=== PATIENT | male | born 1980 | race Caucasian/White ===

== ENCOUNTER 2022-06-27 07:00 | Emergency (ER) | payer MEDICAID, SELFPAY ==
[2022-06-27 07:08] VITALS: BP 121/73; PULSE 80; RESP 20; TEMP 36.1; O2SAT 98; BMI 23.0
[2022-06-27] MEDS: Morphine Sulfate 4 MG/ML CARTRIDGE IVPUSH (07:19)
[2022-06-27] MEDS: Ketorolac Tromethamine 15 MG/ML VIAL IVPUSH (07:25)
[2022-06-27] MEDS: Lidocaine HCl 2% PF/Epi 1:200 20 ML VIAL INFILTRATI (07:25)
[2022-06-27 07:40] VITALS: BP 117/77; PULSE 85; RESP 18; O2SAT 100
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
[2022-06-27] MEDS: HYDROmorphone HCl 2 MG/ML VIAL IVPUSH (08:26)
[2022-06-27 09:32] VITALS: BP 119/77; PULSE 61; RESP 16; O2SAT 98
--- NOTE | 2022-06-27 10:47 | PC.NURSE ---
pt is currently asleep, respirations even and unlabored
--- NOTE | 2022-06-27 11:08 | MHC.RECOVRN ---
Attempted to meet with pt x 2 to discuss substance use. Pt unable to stay awake during conversation. T/w available if needed. RN aware.
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
[2022-06-27] MEDS: Diphth,Pertus(ACell),Tet Adult 0.5 ML SYRINGE IM (11:31)
[2022-06-27] MEDS: Naloxone HCl Nasal TAKE HOME 4 MG SPRAY NOSTRILALT (11:33)
[2022-06-27] MEDS: cephALEXin 500 MG CAPSULE PO (11:33)
== END 2022-06-27 11:42 | disposition home or self-care (01) ==
PROVIDERS: Emergency Provider Emergency Medicine Emergency Medical Services
DX: S41.111A Laceration without foreign body of right upper arm, initial encounter (principal); S50.811A Abrasion of right forearm, initial encounter; F11.10 Opioid abuse, uncomplicated; F17.200 Nicotine dependence, unspecified, uncomplicated; W01.119A Fall on same level from slipping, tripping and stumbling with subsequent striking against unspecified sharp object, initial encounter; Y93.9 Activity, unspecified; Y92.007 Garden or yard of unspecified non-institutional (private) residence as the place of occurrence of the external cause; Y99.9 Unspecified external cause status; Z79.899 Other long term (current) drug therapy; Z71.6 Tobacco abuse counseling
CPT/HCPCS: 13121; 13122; 90471; 90715; 96374; 96375; 99284; J1170; J1885; J2270

== ENCOUNTER 2022-07-12 10:45 | Emergency (ER) | payer MEDICAID, SELFPAY ==
[2022-07-12 11:08] VITALS: BP 120/70; PULSE 83; RESP 16; TEMP 36.9; O2SAT 96; BMI 21.9
--- NOTE | 2022-07-12 13:02 | ED_ITS ---
HPI - General Adult General Chief complaint: General Medical Stated complaint: Bassem removed Time Seen by Provider: 07/12/22 12:49 Source: patient Mode of arrival: ambulatory History of Present Illness HPI narrative: 42-year-old male with a past medical history of substance abuse presenting to ED for staple removal s/p injury on 06/27/2022. Patient was seen and treated in our ED after incident had complicated laceration repair with 32 bassem placed. Denies fever, chills, drainage from area, swelling, increasing pain Related Data Previous Rx's Medication Instructions Recorded cephalexin 500 mg capsule 500 mg PO QID 7 days #28 caps 06/27/22 Allergies Allergy/AdvReac Type Severity Reaction Status Date / Time No Known Allergies Allergy Verified 07/12/22 11:08 Review of Systems Review of Systems: Constitutional: No Fever, No Chills ENT/Mouth: No Ear Pain, No Nasal Congestion, No sore throat, No Rhinorrhea, No Swallowing Difficulty Cardiovascular: No Chest Pain, No SOB Respiratory: No Cough, No Sputum, No Wheezing Gastrointestinal: No Nausea, No Vomiting, No Diarrhea, No Constipation, No Abdominal pain Genitourinary: No Dysuria, No Urinary Frequency, No Hematuria, No Flank Pain Musculoskeletal: No joint pain, No Myalgias, No Joint Swelling Skin: +wounds No rash Neuro: No Weakness, No Numbness, No Paresthesias Yes all other systems are reviewed and are negative Constitutional: Constitutional: Reports as per [facility] Past Medical History Attestation statement: The following information was validated with the patient. Medical History (Updated 07/12/22 @ 13:05 by JULIÁN Smith) No known health problems Social History Social History Patient Tobacco Use Status: Current everyday Tobacco user Substance Use Type: Heroin Advance Directives: No Advance Directives Information Provided: No Physical Exam ED Vital Signs: Vital Signs - 24 hr 07/12/22 11:08 Temperature 98.4 F Pulse Rate 83 Respiratory Rate 16 Blood Pressure 120/70 Pulse Oximetry 96 Oxygen Delivery Method Room Air BMI result Body Mass Index 21.9 Const General: cooperative, healthy appearing and no acute distress Orientation/consciousness: patient oriented x3 Limitations: no limitations HENMT Head: Yes normal to inspection and Yes atraumatic Ears: hearing grossly normal bilaterally General nose exam: Normal external nose present Face and sinus: Yes normal facial exam Eyes General: appearance normal, both eyes and all related structures EOM: EOMs intact bilaterally Neck Neck: Yes normal visual inspection and Yes no meningeal signs Resp Effort & Inspection: normal respiratory effort and no respiratory distress Cardio Rate: regular rate Heart sounds: S1 normal heart sound present and S2 normal heart sound present Peripheral pulses: radial pulses present and ulnar radial pulses present Skin Other: Two appropriatelyhealing lacerations with bassem intact to right lateral forearm and medial bicep/tricep. No wound dehiscence, no surrounding erythema/cellulitis, no warmth, no drainage, no fluctuance/induration. Neurovascular intact distally. Rashes: no rashes Neuro General: patient oriented x3, tone normal and no meningeal signs Gait exam (Neuro): Normal gait present Extrem General: Yes normal to inspection Procedures Procedure Narrative Procedure Narrative: Staple removal: 15 bassem removed from a right lateral forearm 17 bassem removed from right medial Biceps/triceps No complications or wound dehiscence. No bleeding. Medical Decision Making MDM Narrative Medical decision making narrative: 42-year-old male with a past medical history of substance abuse presenting to ED for staple removal s/p injury on 06/27/2022. On exam vital signs stable, bassem intact without overlying erythema/warmth, no drainage, no wound dehiscence. Plan: Remove bassem Discharge Plan Discharge Clinical Impression: Removal of bassem Patient Disposition: Home, Self-Care Instructions: Stitches Removal (ED) Additional Instructions: Keep area dry and clean. Apply bacitracin or Neosporin. Follow up with her doctor. If area begins to look infected return to the emergency department Prescriptions: No Action cephalexin 500 mg capsule 500 mg PO QID 7 Days Qty: 28 0RF Referrals: Physician,Unknown J [Primary Care Provider] - Interventions: ED Discharge Assessment Last Done: 07/12/22 13:17 Discharge Date/Time: 07/12/22 13:17
== END 2022-07-12 13:17 | disposition home or self-care (01) ==
PROVIDERS: Emergency Provider Emergency Medicine Emergency Medical Services
DX: Z48.02 Encounter for removal of sutures (principal); S51.831D Puncture wound without foreign body of right forearm, subsequent encounter; X58.XXXD Exposure to other specified factors, subsequent encounter
CPT/HCPCS: 99283

== ENCOUNTER 2023-05-13 22:18 | Emergency (ER) | payer MEDICAID, SELFPAY ==
[2023-05-13 23:15] VITALS: BP 109/62; PULSE 67; RESP 20; TEMP 36.7; O2SAT 98; BMI 23.0
== END 2023-05-14 01:51 | disposition left against medical advice (07) ==
PROVIDERS: Emergency Provider Emergency Medicine
DX: R51.9 Headache, unspecified (principal)
CPT/HCPCS: 99281

== ENCOUNTER 2023-08-13 00:33 | Observation (INO) | payer MEDICAID, SELFPAY ==
--- NOTE | ~2023-08-13 | XR_ITS ---
EXAMINATION: XR CHEST CLINICAL INFORMATION: Pneumothorax COMPARISON: Previous chest CT from earlier the same day TECHNIQUE: 2 views of the chest were obtained. FINDINGS: The cardiac silhouette is enlarged. The lungs are clear. There is a small right pneumothorax. This measures 8 mm in greatest thickness at the right lung base. This is difficult to compare with I chest CT but probably not appreciably changed. No pleural effusion. There is a right ninth rib fracture. XR/XR chest 2V IMPRESSION: Small right pneumothorax. Right posterior ninth rib fracture.
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
--- NOTE | ~2023-08-13 | XR_ITS ---
EXAMINATION: XR CHEST CLINICAL INFORMATION: Follow-up right pneumothorax COMPARISON: Previous chest x-ray and chest CT from earlier the same day TECHNIQUE: 2 views of the chest were obtained. FINDINGS: The cardiac silhouette is slightly enlarged but stable. Right pneumothorax not definitely seen. Question right pneumothorax at the lateral costophrenic angle measuring 1.3 cm in greatest thickness. The lungs are clear. No pleural effusion. Known right posterior ninth rib fracture not well appreciated. XR/XR chest 2V IMPRESSION: Right pneumothorax not definitely seen. Question right pneumothorax at the right lateral costophrenic angle measuring 1.3 cm in greatest thickness.
--- NOTE | ~2023-08-13 | CT_ITS ---
EXAMINATION: CT CHEST WITH CONTRAST CLINICAL INFORMATION: Right chest wall pain COMPARISON: None available. TECHNIQUE: Multidetector volumetric CT imaging of the chest was obtained after the administration of 65 mL of Omnipaque 350 intravenous contrast without immediate adverse reactions. Axial MIP volume rendering provided. Sagittal and coronal reformatted images were obtained. This CT examination was performed using dose optimization techniques as appropriate, variously including the following: *Automated exposure control *Adjustment of mA and/or kV according to patient size (this includes techniques or standardized protocols for targeted exams where dose is matched to indication/reason for exam; i.e. extremities or head) *Use of iterative reconstruction technique DLP: 1463 mGy-cm FINDINGS: LUNGS/PLEURA: Limited evaluation in some regions due to motion artifact. Small right pneumothorax is present. Trace right pleural fluid is suspected suspicious for minimal hemothorax. Mild basilar right lower lobe opacities are suggestive of atelectasis though mild component of consolidation is difficult to exclude. Small blebs noted at the medial left apex. A few tiny left upper lobe nodules are present measuring up to 4 mm such as on images 148 and 223/619. Small right minor fissural nodules favor lymph nodes. MEDIASTINUM: The visualized thyroid gland is unremarkable. There are subcentimeter mediastinal lymph nodes within the range of normal variation. There are subcentimeter mediastinal lymph nodes within the range of normal variation. Cardiac size is within normal limits; no pericardial effusion. The aorta is unremarkable. AXILLA: No lymphadenopathy. UPPER ABDOMEN: Unremarkable OSSEOUS STRUCTURES: There is a mildly displaced lateral right ninth rib fracture with adjacent soft tissue gas. Right os acromiale is noted. CT/CT chest w IV con IMPRESSION: 1. Small right pneumothorax. 2. Trace right pleural fluid suspicious for minimal hemothorax. 3. Mildly displaced lateral right ninth rib fracture. 4. Mild basilar right lower lobe opacities are suggestive of atelectasis though mild component of consolidation is difficult to exclude. 5. Few tiny left upper lobe lung nodules measuring up to 4 mm, nonspecific. According to the UPDATED 2017 Fleischner Society recommendations, the advised follow-up imaging for solid nodules < 6 mm is: LOW RISK PATIENT: No routine follow-up. HIGH RISK PATIENT: Optional CT at 12 months. This critical result was discussed with Dr. Arevalo on 08/13/2023 3:54 AM, and it was ascertained that the content and urgency of the report was understood at the time of direct communication.
[2023-08-13 00:45] VITALS: BP 128/89; BP 156/78; PULSE 64; PULSE 65; RESP 18; TEMP 36.8; O2SAT 99; BMI 21.9
[2023-08-13 01:33] LABS: MANUAL DIFF FLAG NO
[2023-08-13 01:38] LABS: Basophils Percent Auto 0.3 % (0-2); Eosinophils Absolute Auto 0.1 X10*3/uL (0.0-0.4); Eosinophils Percent Auto 0.8 % (0-4); Hematocrit 35.8 % (42.0-52.0); Imm Gran Abs Auto 0.03 X10*3/uL (0.00-0.03); Imm Gran Pct Auto 0.3 % (0.0-0.4); Lymphocytes Absolute Auto 2.2 X10*3/uL (1.2-4.9); Mean Corpuscular HGB Conc 30.7 g/dl (31.0-36.0); Mean Corpuscular Hemoglobin 25.9 pg (27.0-33.0); Mean Corpuscular Volume 84.2 fL (80.0-98.0); Mean Platelet Volume 10.9 fL (9.4-12.4); Monocytes Absolute Auto 0.8 X10*3/uL (0.1-1.2); Monocytes Percent Auto 9.5 % (2-11); Neutrophils Absolute Auto 5.7 x10*3/uL (2.0-8.3); Neutrophils Percent Auto 64.1 % (45-73); Platelet Count 181 X10*3/uL (160-400); Red Blood Count 4.25 X10*6/uL (4.60-5.80); Red Cell Distribution Width 13.3 % (11.0-16.0); White Blood Count 8.9 X10*3/uL (4.8-10.8)
[2023-08-13 01:45] LABS: Prothrombin Time 12.4 SEC (11.1-13.3)
[2023-08-13 01:52] LABS: Alanine Aminotransferase 25 U/L (0-40); Albumin Level 4.3 g/dL (3.5-5.0); Alkaline Phosphatase 82 U/L (39-117); Anion Gap 12 (12-20); Aspartate Amino Transferase 43 U/L (5-37); Bilirubin Total 0.3 mg/dL (0.0-1.0); Blood Urea Nitrogen 17 mg/dL (9-16); Carbon Dioxide 28 mmol/L (22-29); Chloride 103 mmol/L (96-108); Estimated Glomerular Filt Rate > 60; Glucose Random 62 mg/dL (60-115); Potassium 4.4 mmol/L (3.3-5.1); Sodium 139 mmol/L (135-145)
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
[2023-08-13] MEDS: Acetaminophen 325 MG TABLET 975 MG PO (03:11)
[2023-08-13] MEDS: Ketorolac Tromethamine 30 MG/ML VIAL 15 MG IVPUSH (03:11)
[2023-08-13] MEDS: iohexoL 350 MG/ML 100 ML INFUS..BTL 65 ML IV (03:19)
--- NOTE | 2023-08-13 03:21 | PC.NURSE ---
This RN assumed care upon patient's arrival. Patient noted to be sedated upon arrival, but able to speak with this RN in Portuguese, with armored vehicle officer at bedside as well. Patient endorsed 10/10 pain to right sided rib area, stating I think they're broken Patient unable to lie flat due to pain, unable to sit still as well, bed repositioned to patient's level of comfort and heated blanket given to patient to apply to affected area. This RN attempted IV placement, unsuccessful. BRENDAN Sprague attempted IV placement, unsuccessful, patient required ultrasound guided IV, placed successfully by Dr. Duarte. Patient was found to have contraband, patient willingly emptied pockets and gave up contraband to this RN. Security collected contraband. Patient unable to lie flat for CT scans due to pain, per Ilir (CT). This RN asked Dr. Arevalo for pain medicine multiple times, to which Tylenol and Ibuprofen were finally ordered.
--- NOTE | 2023-08-13 03:58 | PC.NURSE ---
assumed care of patient at 314. this RN medicated patient per jan for pain and placed patient on 2L o2 via NC per MD request. denies difficulty breathing or respiratory issues at this time.
[2023-08-13 04:06] LABS: Appearance Urine Clear; Color Urine Yellow; Glucose Urine UA Negative (Negative); Leukocyte Esterase Urine Negative (Negative); Nitrite Urine Negative (Negative); PH 6.5 (5.0-9.0); Specific Gravity - Urine 1.015 (1.005-1.025); Urine Blood Negative (Negative); Urine Ketones Negative (Negative); Urine Protein Negative (Neg-Trace)
[2023-08-13 04:13] LABS: Amphetamine Screen Urine Not Detected (Not Detect); Barbiturates, Urine Not Detected (Not Detect); Benzodiazepines Screen Urine Not Detected (Not Detect); Cannabinoid Screen Urine Not Detected (Not Detect); Cocaine Screen Urine POSITIVE (Not Detect); Fentanyl, urine POSITIVE (Not Detect); Opiate Screen Urine Not Detected (Not Detect); Phencyclidine Screen Urine Not Detected (Not Detect)
[2023-08-13 05:03] VITALS: BP 139/90; PULSE 57; RESP 17; TEMP 36.8; O2SAT 99
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
[2023-08-13 05:14] VITALS: BP 139/90; PULSE 54; RESP 12; O2SAT 99
--- NOTE | 2023-08-13 05:42 | MHC.EDTECH ---
All patient belongings are locked in [place] Patient was changes over into hospital attire
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
--- NOTE | 2023-08-13 09:03 | PHA.MEDREC ---
Pharmacy Consult ? Medication Reconciliation Pharmacy has completed the medication reconciliation. Patient mostly unarousable, nodded his head when asked about home medications. No recent claim history
--- NOTE | 2023-08-13 09:14 | MHC.RECOVRN ---
This news writer went to meet with patient after receiving addiction consult. Patient admitted for pneumothorax. Pt resting comfortably, will return to bedside when patient alert.
[2023-08-13 09:23] VITALS: BP 123/83; PULSE 50; RESP 12; O2SAT 100
--- NOTE | 2023-08-13 09:24 | PC.NURSE ---
axox4; respirations even and unlabored; sats 100% on RA placed on 3L NC for comfort. pt reporting pain of R. rib area; denies cp/sob/n/v/d. pt able to urinate without difficulty this am. pt repositioned. reached out to hospitalist to confirm diet. call robles within reach.
[2023-08-13] MEDS: 0.9 % Sodium Chloride Flush 3 ML SYRINGE IVFLUSH (09:28)
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
--- NOTE | 2023-08-13 11:09 | MHC.RECOVRN ---
This filing writer verified patients MTD, faxed to pharmacy. [facility], 40mg, 08/12/23 @9:34am.
--- NOTE | 2023-08-13 11:20 | HE.PHANOTE ---
RE: methadone Received verification form from [facility] last dose 40mg on 08/12/23
[2023-08-13] MEDS: methADONE HCl 20 MG/2 ML ORAL.CONC 40 MG PO (13:12)
--- NOTE | 2023-08-13 13:14 | PC.NURSE ---
Em from [facility] here to speak with patient. Methadone verified by EM and ordered by provider. Patient has not received his dose today. Medicated with 40mg as ordered.
--- NOTE | 2023-08-13 14:21 | PC.NURSE ---
Attempted to give IV dilaudid, upon flush iv had infiltrated. IV removed. x [address] new iV unsuccesful. Provider aware, stating will order PO, patietn aware.
[2023-08-13] MEDS: oxyCODONE HCl Immed Release 5 MG TABLET 10 MG PO (14:26)
--- NOTE | 2023-08-13 14:50 | PC.NURSE ---
Patient pacing, stating he wants to go home. Educated that we are waitng for x ray results to return. Medicated per order with prn oxycone
--- NOTE | 2023-08-13 15:47 | PC.NURSE ---
Call placed to jesse to read patients chest x ray. Patient stating that he is not waiting for x ray to come back he wants to leave. Patient educated on risks of leaving ama, stating he will come back if he needs to. Provider notified, stating patient can sign out. Patient signed ama paperwork , brought to [facility] by [employer] to get personal items
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
== END 2023-08-14 16:20 | disposition left against medical advice (07) ==
LOC: HO.ED 04:50 → HO.EDOVER 05:08 → HO.S3 08-14 16:18
PROVIDERS: Admitting Provider Student in an Organized Health Care Education/Training Program; Emergency Provider Student in an Organized Health Care Education/Training Program; Visit Provider Hospitalist
DX: S27.0XXA Traumatic pneumothorax, initial encounter (principal); S02.2XXA Fracture of nasal bones, initial encounter for closed fracture; S22.31XA Fracture of one rib, right side, initial encounter for closed fracture; S20.219A Contusion of unspecified front wall of thorax, initial encounter; Y08.02XA Assault by strike by baseball bat, initial encounter; Y93.89 Activity, other specified; Y92.9 Unspecified place or not applicable; F19.90 Other psychoactive substance use, unspecified, uncomplicated; R10.9 Unspecified abdominal pain; R07.89 Other chest pain
CPT/HCPCS: 36415; 70450; 71046; 71260; 72125; 80053; 80307; 81003; 85025; 85610; 96374; 99221; 99284; J1885; Q9967

== ENCOUNTER → 2023-08-13 05:02 | Outpatient (BNV) | payer MEDICAID, SELFPAY | PROVIDERS: Admitting Provider Student in an Organized Health Care Education/Training Program; Emergency Provider Student in an Organized Health Care Education/Training Program; Visit Provider Student in an Organized Health Care Education/Training Program | DX: S27.0XXA Traumatic pneumothorax, initial encounter (principal); S22.31XA Fracture of one rib, right side, initial encounter for closed fracture; Z53.29 Procedure and treatment not carried out because of patient's decision for other reasons; Y09 Assault by unspecified means | CPT/HCPCS: 99235; 99499 ==